=== PATIENT | male | born 1985 | race Hispanic/Latino ===

== ENCOUNTER 2023-03-11 20:21 | Emergency (ER) | payer OTHER ==
[~2023-03-11 20:21] MED LIST: Iopamidol-370 76% 500 ML MDV (1 ML CHARGE) ONE
[2023-03-11] MEDS ORDERED: Ondansetron PF 4 MG/2 ML Vial ONE (20:35)
[2023-03-11] MEDS ORDERED: Morphine 4 MG/ML VIAL ONE (20:35)
[2023-03-11] MEDS ORDERED: Boostrix 0.5 ML (Tdap) VIAL (>/=7 yrs of age) ONE (20:58)
[2023-03-11] MEDS ORDERED: Ketorolac Tromethamine 30 MG/ML VIAL ONE (22:04)
== END 2023-03-11 23:10 | disposition home or self-care (01) ==
LOC: ERS 20:21
DX: S22.31XA Fracture of one rib, right side, initial encounter for closed fracture (principal); S31.813A Puncture wound without foreign body of right buttock, initial encounter; Z23 Encounter for immunization; W20.8XXA Other cause of strike by thrown, projected or falling object, initial encounter
CPT/HCPCS: 71045; 71260; 90471; 90715; 93005; 96374; 96375; J1885; J2270; J2405; Q9967

== ENCOUNTER 2023-04-09 14:33 | Emergency (ER) | payer OTHER, SELFPAY | END 2023-04-09 17:08 | disposition home or self-care (01) | LOC: ERS 14:33 | DX: S22.31XD Fracture of one rib, right side, subsequent encounter for fracture with routine healing (principal); W20.8XXD Other cause of strike by thrown, projected or falling object, subsequent encounter; Y99.0 Civilian activity done for income or pay | CPT/HCPCS: 99283 ==